=== PATIENT | male | born 1970 | race American Indian/Alaskan Native ===

== ENCOUNTER 2016-08-15 22:43 | Observation (INO) | payer MEDICAID ==
[2016-08-15 22:43] VITALS: BMI 23.7
[2016-08-15 22:49] VITALS: PULSE 63; RESP 16
--- NOTE | 2016-08-15 23:29 | C.PDOC ---
History Of Present Illness Pt was BIBEMS due to public alcohol intoxication. Pt admits to drinking alcohol. Denies fall or any pain. Time Seen by Provider: 08/15/16 22:58 Chief Complaint (Nursing): Substance Abuse History Per: Patient, EMS History/Exam Limitations: intoxication, physical impairment (Blind) Onset/Duration Of Symptoms: Unknown (today) Current Symptoms Are (Timing): Still Present Suicide/Self Injury Attempted (Context): None Modifying Factor(s): Alcohol Severity: Moderate Associated Symptoms: denies: Suicidal Thoughts, Suicidal Plan Additional History Per: Prior Records Past Medical History Reviewed: Historical Data, Nursing Documentation, Vital Signs Vital Signs: Last Vital Signs Temp 98.5 F 08/16/16 05:04 Pulse 63 08/16/16 05:04 Resp 16 08/16/16 05:04 BP 115/66 08/16/16 05:04 Pulse Ox 96 08/16/16 05:04 - Medical History PMH: Bipolar Disorder, Depression Other PMH: Blind - [facility] Procedures COMBINED ALCOHOL AND DRUG DETOXIFICATION (05/17/14) DRUG DETOXIFICATION (11/30/14) INDIV PSYCHOTHERAPY FOR SUBSTANCE ABUSE TREATMENT, SUPPORT (03/31/16) INDIV PSYCHOTHERAPY FOR SUBSTANCE ABUSE, COGNITIV BEHAVIORAL (03/31/16) PSYCHIA INTERV/EVAL NEC (12/15/13) Family History: States: Unknown Family Hx - Social History Hx Tobacco Use: Yes (light smoker) Hx Alcohol Use: Yes Hx Substance Use: Yes - Immunization History Hx Tetanus Toxoid Vaccination: No Hx Influenza Vaccination: No Hx Pneumococcal Vaccination: No Review Of Systems Review Of Systems: ROS cannot be obtained secondary to pt's inabilty to answer questions. Physical Exam - Physical Exam Appears: No Acute Distress, Other (AOB, intoxicated) Skin: Normal Color, Warm, Dry Head: Atraumatic Neck: Normal ROM, No Midline Cervical Tenderness, No Step Off Deformity, Supple Cardiovascular: Rhythm Regular Respiratory: Normal Breath Sounds, No Accessory Muscle Use Gastrointestinal/Abdominal: Soft, No Tenderness Extremity: Normal ROM, No Deformity Neurological/Psych: Slow To Respond With Command, Other (Moving all extremities) Gait: Unable To Assess ED Course And Treatment O2 Sat by Pulse Oximetry: 98 Pulse Ox Interpretation: Normal Reassessment Condition: Improved ED OBSERVATION Discharge: Yes Date of observation admission: 08/15/16 Time of observation admission: 23:00 - Observation admission statement Patient is being placed in observation because:: Alcohol intoxication. - Goals of Observation Goals of observation are:: Sobriety. - Progress Note Progress Note: 08/16/16 06:21 Pt is now clinically sober. AAOx3 and wants to leave now. Disposition Counseled Patient/Family Regarding: Diagnosis, Need For Followup - Disposition Disposition: HOME/ ROUTINE Disposition Time: 06:21 Condition: IMPROVED - Clinical Impression Clinical Impression: Alcohol abuse
[2016-08-16 05:05] VITALS: BP 115/66; TEMP 98.5
[2016-08-16 06:22] VITALS: O2SAT 98
== END 2016-08-16 06:22 | disposition home or self-care (01) ==
LOC: C.ER 22:43 → C.9OBSV 23:30
PROVIDERS: ADMIT Emergency Medicine; ATTEND Emergency Medicine
DX: F10.120 Alcohol abuse with intoxication, uncomplicated (principal); F31.9 Bipolar disorder, unspecified; H54.0 Blindness, both eyes; F17.219 Nicotine dependence, cigarettes, with unspecified nicotine-induced disorders; Y90.9 Presence of alcohol in blood, level not specified
CPT/HCPCS: 82948; G0378

== ENCOUNTER 2017-03-30 10:50 | Emergency (ER) | payer SELFPAY ==
[2017-03-30 10:51] VITALS: BMI 23.7
[2017-03-30 11:03] VITALS: RESP 20
--- NOTE | 2017-03-30 11:12 | C.PDOC ---
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 The patient presents to the ED via BLS for of having Suicidal Ideation . The patient is not currently taking any medications. The patient admits to drinking but not today . The patient denies headache, dizziness, suicidal attempts. Time Seen by Provider: 03/30/17 10:53 Chief Complaint (Nursing): Psychiatric Evaluation History Per: Patient History/Exam Limitations: no limitations Onset/Duration Of Symptoms: Hrs Current Symptoms Are (Timing): Still Present Associated Symptoms: denies: Anger, Anxiety, Agitation Recent travel outside of the [place]: No Additional History Per: Patient Past Medical History Vital Signs: Last Vital Signs Temp 98.6 F 03/30/17 15:02 Pulse 78 03/30/17 15:02 Resp 20 03/30/17 15:02 BP 131/80 03/30/17 15:02 Pulse Ox 100 03/30/17 18:44 - Medical History PMH: Bipolar Disorder, Depression Denies: HTN (Patient denied), Chronic Kidney Disease, Seizures (Patient denied), Sexually Transmitted Disease (Patient denied) Surgical History: No Surg Hx - [facility] Procedures COMBINED ALCOHOL AND DRUG DETOXIFICATION (05/17/14) DRUG DETOXIFICATION (11/30/14) INDIV PSYCHOTHERAPY FOR SUBSTANCE ABUSE TREATMENT, SUPPORT (03/31/16) INDIV PSYCHOTHERAPY FOR SUBSTANCE ABUSE, COGNITIV BEHAVIORAL (03/31/16) PSYCHIA INTERV/EVAL NEC (12/15/13) Family History: States: Unknown Family Hx - Social History Hx Tobacco Use: Yes (light smoker) Hx Alcohol Use: Yes Hx Substance Use: Yes - Immunization History Hx Tetanus Toxoid Vaccination: No Hx Influenza Vaccination: No Hx Pneumococcal Vaccination: No Review Of Systems Except As Marked, All Systems Reviewed And Found Negative. Constitutional: Negative for: Fever, Chills Cardiovascular: Negative for: Chest Pain Respiratory: Negative for: Cough, Shortness of Breath Gastrointestinal: Positive for: Other (asked for a sandwich multiple times ). Negative for: Nausea, Vomiting, Abdominal Pain, Diarrhea Neurological: Negative for: Change in Speech, Confusion, Dizziness Psych: Positive for: Suicidal ideation. Negative for: Psychosis Physical Exam - Physical Exam Appears: Non-toxic, Other (calm) Skin: Warm, Dry Head: Atraumatic, Normacephalic Eye(s): bilateral: PERRL Oral Mucosa: Moist Neck: Supple Cardiovascular: Rhythm Regular Respiratory: Normal Breath Sounds, No Rales, No Rhonchi, No Wheezing Gastrointestinal/Abdominal: Soft, No Tenderness, No Guarding, No Rebound Extremity: Normal ROM, Capillary Refill (2<sec.) Neurological/Psych: Oriented x3, Normal Speech, Normal Cognition, Other ( suicidal ideation ) Disoriented To: Person ED Course And Treatment - Laboratory Results Result Diagrams: 03/30/17 11:21 03/30/17 11:21 Lab Interpretation: Normal ECG: Interpreted By Me ECG Rhythm: Sinus Rhythm Rate From EC O2 Sat by Pulse Oximetry: 100 Pulse Ox Interpretation: Normal Progress Note: Case discussed and patient evaluated by family service caseworker and Dr Hall consulted who reviewed case and requests discharge. Patient re- evaluated multiple times in no distress, sleeping on and off. Discharge with follow up with outpatiet services Reassessment Condition: Improved - Physician Consult Information Physician Contacted: Rochelle Nunez Outcome Of Conversation: discharge Medical Decision Making Medical Decision Making: spoke to Crisis for an evaluation . Patient presented to ED with EKG: NSR @ 44 BPM NSTT changes patient denies any Chest Pain or SOB Repeat EKG: NSR @ 72 bpm, Qtc 429, NSST Patient discharged in stable condition, denies Chest pain advised to follow up with outpatient services for further evaluation Disposition Counseled Patient/Family Regarding: Studies Performed, Diagnosis, Need For Followup - Disposition Referrals: Alcoholics Anonymous [Outside] [facility] [Outside] [facility] [Outside] [facility] [Outside] [facility] [Outside] Disposition: HOME/ ROUTINE Disposition Time: 15:15 Condition: STABLE Additional Instructions: Follow up for outpatient services Information regarding homeless shelters provided Instructions: Depression (ED) Forms: [facility] (Fijian) - POA Present On Arrival: None - Clinical Impression Clinical Impression: Drug abuse, Depression - PA / PIT OPERATOR / Resident Statement MD/DO has examined the patient and agrees with the treatment plan. - Scribe Statement The provider has reviewed the documentation as recorded by the Scribe Kailyn Rey All medical record entries made by the Scribe were at my direction and personally dictated by me. I have reviewed the chart and agree that the record accurately reflects my personal performance of the history, physical exam, medical decision making, and the department course for this patient. I have also personally directed, reviewed, and agree with the discharge instructions and disposition.
[2017-03-30 11:25] LABS: BASO % 0.3 % (0.0-2.0); EOS % 0.2 % (0.0-4.0); HEMATOCRIT 37.5 % (35.0-51.0); LYMPH % 11.4 % (20.0-40.0); MEAN CORPUSCULAR HEMOGLOBIN 23.1 pg (27.0-31.0); MEAN CORPUSCULAR HGB CONC 32.1 g/dL (33.0-37.0); MEAN PLATELET VOLUME 8.1 fL (7.2-11.7); MONO # 0.7 K/uL (0.0-0.8); MONO % 7.5 % (0.0-10.0); NRBC % 0.6 % (0.0-2.0); RED CELL DISTRIBUTION WIDTH 14.2 % (11.5-14.5); WHITE BLOOD COUNT 9.1 K/uL (4.8-10.8)
[2017-03-30 11:38] LABS: ALCOHOL SERUM < 10 mg/dl (0-10); ALKALINE PHOSPHATASE 110 U/L (38-126); ALT/SGPT 34 U/L (21-72); AST/SGOT 35 U/L (17-59); BILIRUBIN,TOTAL 0.9 mg/dL (0.2-1.3); BLOOD UREA NITROGEN 18 mg/dL (9-20); CARBON DIOXIDE 30 mmol/L (22-30); CHLORIDE 103 mmol/L (98-107); GFR AFRICAN-AMERICAN > 60; GLUCOSE,RANDOM 74 mg/dL (75-110); SODIUM 139 mmol/L (132-148); TOTAL PROTEIN 8.3 g/dL (6.3-8.3)
[2017-03-30 11:40] LABS: ALB/GLOB RATIO 1.1 (1.0-2.1)
[2017-03-30 12:10] LABS: RBC URINE < 1 /hpf (0-3); URINE BILIRUBIN NEGATIVE (NEGATIVE); URINE BLOOD NEGATIVE (NEGATIVE); URINE COLOR Yellow (YELLOW); URINE GLUCOSE (UA) NORMAL (Normal); URINE KETONE 1+ mg/dL (NEGATIVE); URINE LEUKOCYTE ESTERASE NEG Leu/uL (Negative); URINE PROTEIN NEGATIVE (NEGATIVE); URINE UROBILINOGEN NORMAL mg/dL (0.2-1.0); WBC URINE 1 /hpf (0-5)
[2017-03-30 15:03] VITALS: BP 131/80; PULSE 78; TEMP 98.6
[2017-03-30 15:09] VITALS: O2SAT 100
== END 2017-03-30 16:07 | disposition home or self-care (01) ==
LOC: C.ER 10:50
DX: F19.10 Other psychoactive substance abuse, uncomplicated (principal); F32.9 Major depressive disorder, single episode, unspecified; Z87.891 Personal history of nicotine dependence
CPT/HCPCS: 80053; 81001; 82948; 85025; 99284; G0480

== ENCOUNTER 2018-01-21 19:03 | Emergency (ER) | payer MEDICAID ==
[2018-01-21 19:04] VITALS: BMI 23.7
--- NOTE | 2018-01-21 20:11 | C.PDOC ---
History Of Present Illness Patient brought in via EMS after being found at [facility]. Patient is legally blind, offers no complaints at this time and is requesting to leave. Time Seen by Provider: 01/21/18 20:09 Chief Complaint (Nursing): Substance Abuse History Per: Patient History/Exam Limitations: no limitations Suicide/Self Injury Attempted (Context): None Modifying Factor(s): None Severity: None Pain Scale Rating Of: 0 Associated Symptoms: denies: Depression, Suicidal Thoughts Involuntary Hold By: None Recent travel outside of the [place]: No Past Medical History Reviewed: Historical Data, Nursing Documentation, Vital Signs Vital Signs: Last Vital Signs Temp 98 F 01/21/18 20:23 Pulse 89 01/21/18 20:23 Resp 18 01/21/18 20:23 BP 136/73 01/21/18 20:23 Pulse Ox 98 01/21/18 20:23 - Medical History PMH: Bipolar Disorder, Depression Denies: Diabetes, Hepatitis, HIV, HTN (Patient denied), Chronic Kidney Disease, Seizures (Patient denied), Sexually Transmitted Disease (Patient denied) - [facility] Procedures COMBINED ALCOHOL AND DRUG DETOXIFICATION (05/17/14) DRUG DETOXIFICATION (11/30/14) INDIV PSYCHOTHERAPY FOR SUBSTANCE ABUSE TREATMENT, SUPPORT (03/31/16) INDIV PSYCHOTHERAPY FOR SUBSTANCE ABUSE, COGNITIV BEHAVIORAL (03/31/16) PSYCHIA INTERV/EVAL NEC (12/15/13) Family History: States: No Known Family Hx - Social History Hx Tobacco Use: Yes (light smoker) Hx Alcohol Use: Yes Hx Substance Use: Yes - Immunization History Hx Tetanus Toxoid Vaccination: No Hx Influenza Vaccination: No Hx Pneumococcal Vaccination: No Review Of Systems Constitutional: Negative for: Fever, Chills Eyes: Positive for: Other (Legally blind) Cardiovascular: Negative for: Chest Pain, Palpitations Respiratory: Negative for: Cough, Shortness of Breath Gastrointestinal: Negative for: Nausea, Vomiting Neurological: Negative for: Weakness, Numbness Physical Exam - Physical Exam Appears: Non-toxic, Other (No sign of injury) Skin: Warm, Dry Head: Normacephalic Eye(s): bilateral: Other (Blind) Oral Mucosa: Moist Chest: Symmetrical, No Tenderness Cardiovascular: Rhythm Regular Respiratory: No Rales, No Rhonchi, No Wheezing Gastrointestinal/Abdominal: Soft, No Tenderness Neurological/Psych: Oriented x3 Gait: Steady ED Course And Treatment O2 Sat by Pulse Oximetry: 96 (Room air) Pulse Ox Interpretation: Normal Disposition Counseled Patient/Family Regarding: Studies Performed, Diagnosis, Need For Followup - Disposition Referrals: [facility] [Outside] Disposition: HOME/ ROUTINE Disposition Time: 20:10 Condition: FAIR Forms: [facility] (Senegalese), General Discharge Instructions - Clinical Impression Clinical Impression: Encounter for medical assessment - Scribe Statement The provider has reviewed the documentation as recorded by the Scribe Hamzah Nathan All medical record entries made by the Scribe were at my direction and personally dictated by me. I have reviewed the chart and agree that the record accurately reflects my personal performance of the history, physical exam, medical decision making, and the department course for this patient. I have also personally directed, reviewed, and agree with the discharge instructions and disposition.
[2018-01-21 20:24] VITALS: BP 136/73; PULSE 89; RESP 18; TEMP 98
[2018-01-21 20:49] VITALS: O2SAT 96
== END 2018-01-21 20:49 | disposition home or self-care (01) ==
LOC: C.ER 19:03
DX: Z00.00 Encounter for general adult medical examination without abnormal findings (principal)

== ENCOUNTER 2018-03-17 21:12 | Emergency (ER) | payer MEDICAID ==
[2018-03-17 21:13] VITALS: BMI 23.7
--- NOTE | 2018-03-17 22:49 | C.PDOC ---
History Of Present Illness 47 year old male is brought to the ED by EMS for public intoxication. 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 Patient is legally jeanette, denies any compliants at this time. Patient denies SI/HI, hallucinations, injury,fall, trauma. <Slime Reyes - Last Filed: 03/18/18 00:56> History Per: Patient, EMS History/Exam Limitations: no limitations Onset/Duration Of Symptoms: Hrs Current Symptoms Are (Timing): Still Present Suicide/Self Injury Attempted (Context): None Modifying Factor(s): Other (Heroin) Associated Symptoms: denies: Depression, Suicidal Thoughts, Suicidal Plan Recent travel outside of the [place]: No Additional History Per: Patient <Slime Reyes - Last Filed: 03/18/18 00:56> <Keiko Molinajackelin - Last Filed: 03/18/18 05:05> Time Seen by Provider: 03/17/18 21:54 Chief Complaint (Nursing): Substance Abuse Past Medical History Reviewed: Historical Data, Nursing Documentation, Vital Signs Vital Signs: Last Vital Signs Temp 99.1 F 03/17/18 21:16 Pulse 74 03/17/18 21:16 Resp 16 03/17/18 21:16 BP 113/77 03/17/18 21:16 Pulse Ox 96 03/17/18 21:16 - Medical History PMH: Bipolar Disorder, Depression Denies: Diabetes, Hepatitis, HIV, HTN (Patient denied), Chronic Kidney Disease, Seizures (Patient denied), Sexually Transmitted Disease (Patient denied) Surgical History: No Surg Hx - [facility] Procedures COMBINED ALCOHOL AND DRUG DETOXIFICATION (05/17/14) DRUG DETOXIFICATION (11/30/14) INDIV PSYCHOTHERAPY FOR SUBSTANCE ABUSE TREATMENT, SUPPORT (03/31/16) INDIV PSYCHOTHERAPY FOR SUBSTANCE ABUSE, COGNITIV BEHAVIORAL (03/31/16) PSYCHIA INTERV/EVAL NEC (12/15/13) Family History: States: Unknown Family Hx - Social History Hx Tobacco Use: Yes (light smoker) Hx Alcohol Use: Yes Hx Substance Use: Yes - Immunization History Hx Tetanus Toxoid Vaccination: No Hx Influenza Vaccination: No Hx Pneumococcal Vaccination: No <Slime Reyes - Last Filed: 03/18/18 00:56> Vital Signs: Last Vital Signs Temp 98.2 F 03/18/18 04:27 Pulse 62 03/18/18 04:27 Resp 20 11/20/18 04:27 BP 115/60 03/18/18 04:27 Pulse Ox 98 03/18/18 04:27 - [facility] Procedures COMBINED ALCOHOL AND DRUG DETOXIFICATION (05/17/14) DRUG DETOXIFICATION (11/30/14) INDIV PSYCHOTHERAPY FOR SUBSTANCE ABUSE TREATMENT, SUPPORT (03/31/16) INDIV PSYCHOTHERAPY FOR SUBSTANCE ABUSE, COGNITIV BEHAVIORAL (03/31/16) PSYCHIA INTERV/EVAL NEC (12/15/13) <Gerry Molina - Last Filed: 03/18/18 05:05> Review Of Systems Constitutional: Negative for: Fever, Chills Cardiovascular: Negative for: Chest Pain Respiratory: Negative for: Shortness of Breath Gastrointestinal: Negative for: Nausea, Vomiting, Abdominal Pain Skin: Negative for: Rash Psych: Negative for: Depression, Suicidal ideation <Slime Reyes - Last Filed: 03/18/18 00:56> Physical Exam - Physical Exam Appears: Non-toxic, No Acute Distress Skin: Normal Color, Warm, Dry Head: Atraumatic, Normacephalic Eye(s): bilateral: Other (blind) Neck: Normal ROM, Supple Chest: Symmetrical Cardiovascular: Rhythm Regular Respiratory: Normal Breath Sounds, No Rales, No Rhonchi, No Wheezing Gastrointestinal/Abdominal: Soft, No Tenderness, No Guarding, No Rebound Extremity: Normal ROM, No Tenderness, No Swelling Neurological/Psych: Oriented x3, Normal Speech, Normal Cognition Gait: With Assistance <Slime Reyes - Last Filed: 03/18/18 00:56> ED Course And Treatment O2 Sat by Pulse Oximetry: 96 (ON RA) Pulse Ox Interpretation: Normal <Slime Reyes - Last Filed: 03/18/18 00:56> Pulse Ox Interpretation: Normal Reevaluation Time: 05:04 Reassessment Condition: Improved <Gerry Molina - Last Filed: 03/18/18 05:05> Progress - Re-Evaluation Re-evaluation Note: 03/18/18 00:56 SLEEPING NARD AROUSABLE TO LIGHT STIM. - Data Reviewed Data Reviewed: Old records <Slime Reyes - Last Filed: 03/18/18 00:56> Disposition Counseled Patient/Family Regarding: Diagnosis - Disposition Disposition Time: 01:00 <Slime Reyes - Last Filed: 03/18/18 00:56> Counseled Patient/Family Regarding: Studies Performed, Diagnosis, Need For Followup <Gerry Molina - Last Filed: 03/18/18 05:05> - Disposition Referrals: [facility] [Outside] Disposition: HOME/ ROUTINE Condition: FAIR Instructions: Drug Abuse and Drug Addiction (DC) Forms: [email or web address] (Armenian) - Clinical Impression Clinical Impression: Acute narcotic intoxication - Scribe Statement The provider has reviewed the documentation as recorded by the Scribe Odin Hartley All medical record entries made by the Scribe were at my direction and personally dictated by me. I have reviewed the chart and agree that the record accurately reflects my personal performance of the history, physical exam, medical decision making, and the department course for this patient. I have also personally directed, reviewed, and agree with the discharge instructions and disposition. <Slime Reyes - Last Filed: 03/18/18 00:56> Physician Patient Turnover Patient Signed Over To: Gerry Molina Handoff Comments: FU SOBRIETY, DISPO <Slime Reyes - Last Filed: 03/18/18 00:56>
[2018-03-18 02:00] VITALS: RESP 20
[2018-03-18 05:52] VITALS: BP 116/62; PULSE 68; TEMP 98.1; O2SAT 97
== END 2018-03-18 05:51 | disposition home or self-care (01) ==
LOC: C.ER 21:12
DX: F11.129 Opioid abuse with intoxication, unspecified (principal)

== ENCOUNTER 2018-07-16 18:25 | Emergency (ER) | payer MEDICAID ==
[2018-07-16 18:25] VITALS: BMI 23.7
[2018-07-16] MEDS ORDERED: Tobramycin/Dexamethasone (Tobradex) Opth Sol (2.5 ml) OU STA (19:38)
[2018-07-16] MEDS ORDERED: Tobramycin 0.3% OPHT SOLN OU STA (19:41)
--- NOTE | 2018-07-16 19:41 | C.PDOC ---
History Of Present Illness 48 y/o homeless male,w/PMhx of ETOH abuse, brought to ER by BLS for crusting and purulent drainage from left eye socket for the past 1 month. Patient states that he has not been evaluated for the symptoms as of now. Patient reports that he is legally blind. Denies having fever and chills. Time Seen by Provider: 07/16/18 19:15 Chief Complaint (Nursing): Eye Problem Past Medical History - Medical History PMH: Bipolar Disorder, Depression Denies: Diabetes, Hepatitis, HIV, HTN (Patient denied), Chronic Kidney Disease, Seizures (Patient denied), Sexually Transmitted Disease (Patient denied) - [facility] Procedures COMBINED ALCOHOL AND DRUG DETOXIFICATION (05/17/14) DRUG DETOXIFICATION (11/30/14) INDIV PSYCHOTHERAPY FOR SUBSTANCE ABUSE TREATMENT, SUPPORT (03/31/16) INDIV PSYCHOTHERAPY FOR SUBSTANCE ABUSE, COGNITIV BEHAVIORAL (03/31/16) PSYCHIA INTERV/EVAL NEC (12/15/13) Family History: States: Unknown Family Hx - Social History Hx Tobacco Use: Yes (light smoker) Hx Alcohol Use: Yes Hx Substance Use: Yes - Immunization History Hx Tetanus Toxoid Vaccination: No Hx Influenza Vaccination: No Hx Pneumococcal Vaccination: No Review Of Systems Constitutional: Negative for: Fever, Chills Eyes: Positive for: Other (crusting and drainage from left eye) Physical Exam - Physical Exam Appears: Non-toxic, No Acute Distress Skin: Normal Color, Warm, Dry Head: Atraumatic, Normacephalic Eye(s): bilateral: Other (legally blind, copious purulent discharge from left eye) Neurological/Psych: Oriented x3, Normal Speech Medical Decision Making Medical Decision Making: Plan: --Tobramycin OU Updates: On re-evaluation, patient states improvement in symptoms. Patient has been discharged. Disposition Counseled Patient/Family Regarding: Diagnosis, Need For Followup - Disposition Disposition: HOME/ ROUTINE Disposition Time: 19:42 Condition: STABLE Instructions: Conjunctivitis (Pinkeye) (DC) Forms: [facility] (Indonesian), General Discharge Instructions - Clinical Impression Clinical Impression: Conjunctivitis - PA / BANJO REPAIRER / Resident Statement MD/DO has reviewed & agrees with the documentation as recorded. - Scribe Statement The provider has reviewed the documentation as recorded by the Silviano Nunez Provider Attestation All medical record entries made by the Scribe were at my direction and personally dictated by me. I have reviewed the chart and agree that the record accurately reflects my personal performance of the history, physical exam, medical decision making, and the department course for this patient. I have also personally directed, reviewed, and agree with the discharge instructions and disposition.
== END 2018-07-16 20:08 | disposition home or self-care (01) ==
LOC: C.ER 18:25
DX: H10.9 Unspecified conjunctivitis (principal); F17.200 Nicotine dependence, unspecified, uncomplicated; H54.8 Legal blindness, as defined in USA; F31.9 Bipolar disorder, unspecified; Z59.0 Homelessness

== ENCOUNTER 2018-07-17 00:11 | Emergency (ER) | payer MEDICAID ==
[2018-07-17 00:12] VITALS: BMI 23.7
[2018-07-17 00:22] VITALS: RESP 18
--- NOTE | 2018-07-17 04:29 | C.PDOC ---
History Of Present Illness 48 year old male seen earlier today for eye infection was found sitting in the waiting room; he states he is homeless and has nowhere to go. Patient asking to be discharged in the morning. He has no physical complaints. Time Seen by Provider: 07/17/18 00:17 Chief Complaint (Nursing): Medical Clearance History Per: Patient History/Exam Limitations: no limitations Reports Recently: Seen In ED Recent travel outside of the [place]: No Past Medical History Reviewed: Historical Data, Nursing Documentation, Vital Signs Vital Signs: Last Vital Signs Temp 98.8 F 07/17/18 00:19 Pulse 60 07/17/18 00:19 Resp 18 07/17/18 00:19 BP 122/74 07/17/18 00:19 Pulse Ox 98 07/17/18 00:19 - Medical History PMH: Bipolar Disorder, Depression Surgical History: No Surg Hx - [facility] Procedures COMBINED ALCOHOL AND DRUG DETOXIFICATION (05/17/14) DRUG DETOXIFICATION (11/30/14) INDIV PSYCHOTHERAPY FOR SUBSTANCE ABUSE TREATMENT, SUPPORT (03/31/16) INDIV PSYCHOTHERAPY FOR SUBSTANCE ABUSE, COGNITIV BEHAVIORAL (03/31/16) PSYCHIA INTERV/EVAL NEC (12/15/13) Family History: States: No Known Family Hx - Social History Hx Tobacco Use: Yes (light smoker) Hx Alcohol Use: Yes Hx Substance Use: Yes - Immunization History Hx Tetanus Toxoid Vaccination: No Hx Influenza Vaccination: No Hx Pneumococcal Vaccination: No Review Of Systems Constitutional: Negative for: Fever, Chills Cardiovascular: Negative for: Chest Pain, Palpitations Respiratory: Negative for: Cough, Shortness of Breath Gastrointestinal: Negative for: Nausea, Vomiting Neurological: Negative for: Weakness, Numbness, Headache, Dizziness Psych: Negative for: Suicidal ideation Physical Exam - Physical Exam Appears: Well, Non-toxic, No Acute Distress Skin: Normal Color, Warm Head: Atraumatic, Normacephalic Eye(s): bilateral: Other (legally blind) Oral Mucosa: Moist Neck: Normal, Supple Cardiovascular: Rhythm Regular Respiratory: Normal Breath Sounds, No Rales, No Rhonchi, No Wheezing Gastrointestinal/Abdominal: Normal Exam, Bowel Sounds, Soft, No Tenderness Extremity: Normal ROM, No Deformity, No Swelling Extremity: Bilateral: Atraumatic, Normal Color And Temperature, Normal ROM Neurological/Psych: Oriented x3 ED Course And Treatment O2 Sat by Pulse Oximetry: 98 (Room air) Pulse Ox Interpretation: Normal Reevaluation Time: 05:50 Reassessment Condition: Improved (Patient is AAOx3, ambulating normally in the ED - will discharge.) Disposition - Disposition Referrals: Yancy Hubbard MD [Staff Provider] - Disposition: HOME/ ROUTINE Disposition Time: 05:50 Condition: STABLE Forms: [facility] (Khmer), General Discharge Instructions - Clinical Impression Clinical Impression: Homeless - Scribe Statement The provider has reviewed the documentation as recorded by the Scribdavid Nathan All medical record entries made by the Scribe were at my direction and personally dictated by me. I have reviewed the chart and agree that the record accurately reflects my personal performance of the history, physical exam, medical decision making, and the department course for this patient. I have also personally directed, reviewed, and agree with the discharge instructions and disposition.
[2018-07-17 04:53] VITALS: BP 128/66; PULSE 61; TEMP 98.7
[2018-07-27 13:24] VITALS: O2SAT 98
== END 2018-07-17 05:55 | disposition home or self-care (01) ==
LOC: C.ER 00:11
DX: Z59.0 Homelessness (principal)